=== PATIENT | female | born 1995 | race African-American/Black ===

== ENCOUNTER 2017-10-10 20:49 | Emergency (ER) | payer OTHER ==
[~2017-10-10] VITALS: Ht 149.9 cm; Wt 59.9 kg
[~2017-10-10 20:49] MED LIST: MOTRIN800 MG PO
== END 2017-10-10 22:44 | disposition home or self-care (01) ==
LOC: ER 20:49
DX: B34.9 Viral infection, unspecified (principal)

== ENCOUNTER 2017-12-23 15:11 | Emergency (ER) | payer OTHER ==
[~2017-12-23] VITALS: Ht 149.9 cm; Wt 61.2 kg
[2017-12-25] MEDS ORDERED: CARAFATE1 GM (16:05)
== END 2017-12-24 00:22 | disposition home or self-care (01) ==
LOC: ER 15:11
DX: K52.9 Noninfective gastroenteritis and colitis, unspecified (principal)

== ENCOUNTER 2017-12-25 15:48 | Emergency (ER) | payer OTHER ==
[~2017-12-25] VITALS: Ht 149.9 cm; Wt 61.2 kg
[2017-12-25] MEDS ORDERED: CARAFATE1 GM (16:05)
== END 2017-12-25 23:40 | disposition home or self-care (01) ==
LOC: ER 15:48
DX: K29.70 Gastritis, unspecified, without bleeding (principal); N39.0 Urinary tract infection, site not specified